=== PATIENT | male | born 1990 | race African-American/Black ===

== ENCOUNTER 2023-01-22 11:54 | Inpatient (IN) | payer BC, OTHER ==
[2023-01-22 12:42] VITALS: BMI 25.9
[2023-01-22] MEDS ORDERED: guaiFENesin 600 MG TABLET.ER (FP) PO PRN (13:02)
[2023-01-22] MEDS ORDERED: BENZONATATE 200 MG CAPSULE PO PRN (13:02)
[2023-01-22] MEDS ORDERED: NALOXONE HCL (KLOXXADO) 8 MG SPRAY NS PRN (13:02)
[2023-01-22] MEDS ORDERED: NALOXONE HCL 0.4 MG/ML VIAL IM PRN (13:02)
[2023-01-22] MEDS ORDERED: BENZOCAINE/MENTHOL (CHLORASEPTIC ) LOZENGE MM PRN (13:02)
[2023-01-22] MEDS ORDERED: BISMUTH SUBSALICYLATE 262 MG/15 ML BTL PO PRN (13:02)
[2023-01-22] MEDS ORDERED: METHOCARBAMOL 500 MG TABLET PO PRN (13:02)
[2023-01-22] MEDS ORDERED: IBUPROFEN 400 MG TABLET (FP) PO PRN (13:02)
[2023-01-22] MEDS ORDERED: DICYCLOMINE HCL 10 MG CAPSULE PO PRN (13:02)
[2023-01-22] MEDS ORDERED: IBUPROFEN 600 MG TABLET (FP) PO PRN (13:02)
[2023-01-22] MEDS ORDERED: MAGNESIUM HYDROX 2400MG/30ML ORAL SUSPENSION 30 ML CUP PO PRN (13:02)
[2023-01-22] MEDS ORDERED: ONDANSETRON *ODT* 4 MG TABLET SL PRN (13:02)
[2023-01-22] MEDS ORDERED: MAG HYDROX/AL HYDROX/SIMETH 30 ML UNIT-DOSE CUP PO PRN (13:02)
[2023-01-22] MEDS ORDERED: hydrOXYzine PAMOATE 25 MG CAPSULE (FP) PO PRN (13:02)
[2023-01-22] MEDS ORDERED: LORazepam 1 MG TABLET PO PRN (13:02)
[2023-01-22] MEDS ORDERED: LOPERAMIDE HCL 2 MG CAPSULE PO PRN (13:02)
[2023-01-22] MEDS ORDERED: POLYETHYLENE GLYCOL (HEALTHYLAX) 3350 17 GM PACKET PO PRN (13:02)
[2023-01-22] MEDS ORDERED: ACETAMINOPHEN 325 MG TABLET (FP) PO PRN (13:02)
[2023-01-22] MEDS ORDERED: NICOTINE 14 MG/24 HOURS TOPICAL PATCH TD SCH ×2 (13:15→15:39)
[2023-01-22] MEDS: LORazepam 2 MG TABLET PO SCH ×2 (17:19→22:22)
[2023-01-22] MEDS ORDERED: MELATONIN 5 MG TABLETS PO SCH (22:00)
[2023-01-22] MEDS ORDERED: THIAMINE HCL 100 MG TABLET (FP) PO SCH (22:00)
[2023-01-23] MEDS: LORazepam 2 MG TABLET PO SCH ×2 (05:26→10:09)
[2023-01-23] MEDS ORDERED: PRENATAL VITAMINS W/ FOLIC ACID TABLET (FP) PO SCH (10:00)
[2023-01-23 12:58] VITALS: BP 113/67; PULSE 75; RESP 16; TEMP 97.7
[2023-01-23] MEDS ORDERED: risperiDONE 0.5 MG TABLET PO SCH (22:00)
[2023-01-24] MEDS ORDERED: LORazepam 1 MG TABLET PO SCH (05:00)
[2023-01-25] MEDS ORDERED: LORazepam 0.5 MG TABLET PO PRN
[2023-01-25] MEDS ORDERED: LORazepam 0.5 MG TABLET PO SCH (05:00)
[2023-01-26] MEDS ORDERED: LORazepam 0.5 MG TABLET PO ONE (05:00)
== END 2023-01-23 14:44 | disposition left against medical advice (07) | DRG 894 ==
LOC: YASAS 11:54 → Y6N 12:58
PROVIDERS: ADMIT Allergy & Immunology; ATTEND Surgery
PROC: HZ2ZZZZ Detoxification Services for Substance Abuse Treatment (ICD-10-PCS; principal; 2023-01-22)
DX: F10.230 Alcohol dependence with withdrawal, uncomplicated (principal); F14.20 Cocaine dependence, uncomplicated; F12.20 Cannabis dependence, uncomplicated; F17.210 Nicotine dependence, cigarettes, uncomplicated; F20.9 Schizophrenia, unspecified; I10 Essential (primary) hypertension; Z88.8 Allergy status to other drugs, medicaments and biological substances
CPT/HCPCS: 36415; 80307; 87635; 87811; 93005; 93010